=== PATIENT | male | born 1955 | race Caucasian/White ===

== ENCOUNTER 2020-12-21 15:44 | Observation (INO) | payer OTHER ==
[2020-12-21 16:21] VITALS: BMI 35.4
[2020-12-21] MEDS ORDERED: LIDOCAINE HCL 1%, 10 MG/ML (50 mL VIAL) SQ ONE (19:05)
[2020-12-21] MEDS ORDERED: LIDOCAINE HCL 1%, 10 MG/ML (20ML VIAL) ONE (19:05)
[2020-12-21 19:07] LABS: BASO % 0.2 % (0-2.0); EOS % 1.2 % (0-4.5); HEMOGLOBIN 14.8 GM/dL (11.7-16.9); LYMPH % 15.8 % (8-40); MCH 32.2 pg (25.7-33.7); MCHC 35.1 g/dl (32.0-35.9); MEAN CELL VOLUME 91.6 fl (80-96); MEAN PLT VOLUME 7.4 fl (7.5-11.1); NEUT % 72.8 % (42.8-82.8); PLATELET COUNT 199 10^3/uL (134-434); RBC 4.59 M/mm3 (4.00-5.60); WHITE BLOOD COUNT 7.6 K/mm3 (4.0-10.0)
[2020-12-21 19:29] LABS: CALCIUM 9.2 mg/dL (8.5-10.1)
[2020-12-21 19:30] LABS: ALBUMIN 3.8 g/dl (3.4-5.0); BLOOD UREA NITROGEN 15.6 mg/dL (7-18)
[2020-12-21] MEDS ORDERED: CLINDAMYCIN 600MG PREMIX IVPB 600 MG/50 ML BAG IVPB ONE ×2 (19:32→19:50)
[2020-12-21 19:33] LABS: CREATININE 1.2 mg/dL (0.55-1.3)
[2020-12-21 19:34] LABS: BILIRUBIN,TOTAL 0.9 mg/dL (0.2-1); TOT PROT 7.4 g/dl (6.4-8.2)
[2020-12-21] MEDS ORDERED: ENOXAPARIN NA (PORCINE) 40 MG/0.4 ML DISP.SYRIN SQ SCH (21:45)
[2020-12-21 22:49] LABS: EPI CELLS 10 /uL (0-25.1); HYALINE CASTS 2 /uL (0-3.1); URINE APPEARANCE CLEAR; URINE BACTERIA 12 /uL (0-1359); URINE BILIRUBIN NEGATIVE (NEGATIVE); URINE COLOR YELLOW; URINE GLUCOSE (UA) NEGATIVE (NEGATIVE); URINE KETONE NEGATIVE (NEGATIVE); URINE LEUK ESTERASE NEGATIVE (NEGATIVE); URINE NITRITE NEGATIVE (NEGATIVE); URINE PROTEIN 1+ (NEGATIVE); URINE RBC 10 /uL (0-23.9); URINE UROBILINOGEN 0.2 mg/dL (0.2-1.0); URINE WBC 5 /uL (0-25.8)
[2020-12-22] MEDS ORDERED: CLINDAMYCIN 600MG PREMIX IVPB 600 MG/50 ML BAG IVPB SCH ×2 (02:00→18:00)
[2020-12-22 09:03] LABS: BASO % 0.5 % (0-2.0); EOS % 1.8 % (0-4.5); HEMATOCRIT 41.6 % (35.4-49); HEMOGLOBIN 14.7 GM/dL (11.7-16.9); LYMPH % 23.3 % (8-40); MCH 32.8 pg (25.7-33.7); MCHC 35.4 g/dl (32.0-35.9); MEAN CELL VOLUME 92.6 fl (80-96); MEAN PLT VOLUME 7.8 fl (7.5-11.1); MONO % 11.8 % (3.8-10.2); NEUT % 62.6 % (42.8-82.8); PLATELET COUNT 214 10^3/uL (134-434); RBC 4.49 M/mm3 (4.00-5.60); RDW 13.2 % (11.9-15.9); WHITE BLOOD COUNT 5.8 K/mm3 (4.0-10.0)
[2020-12-22 09:06] LABS: CALCIUM 8.7 mg/dL (8.5-10.1)
[2020-12-22 09:07] LABS: BLOOD UREA NITROGEN 15.5 mg/dL (7-18); CHOLESTEROL 153 mg/dL (50-200); MAGNESIUM 2.2 mg/dL (1.8-2.4)
[2020-12-22 09:09] LABS: LDL CHOLESTEROL (ONLY SJRH) 87 mg/dL (5-100)
[2020-12-22 09:10] LABS: CREATININE 1.3 mg/dL (0.55-1.3); PHOSPHOROUS 3.3 mg/dL (2.5-4.9)
[2020-12-22 09:11] LABS: BILIRUBIN,TOTAL 1.2 mg/dL (0.2-1); HDL CHOLESTEROL 52 mg/dL (40-60); TOT PROT 7.2 g/dl (6.4-8.2); TRIGLYCERIDES 77 mg/dL (0-150)
[2020-12-22 09:16] VITALS: PULSE 55
[2020-12-22] MEDS ORDERED: CLINDAMYCIN 600MG PREMIX IVPB 600 MG/50 ML BAG IVPB ONE ×2 (09:27→09:30)
[2020-12-22 09:29] LABS: ALBUMIN 3.6 g/dl (3.4-5.0)
[2020-12-22 13:25] VITALS: BP 126/71; TEMP 97.9
== END 2020-12-22 14:40 | disposition home or self-care (01) ==
LOC: JER 15:44 → INTOOBSV 22:44 → UNDOADMOB 22:44 → JERBED 22:44
PROVIDERS: ADMIT Internal Medicine
PROC: 3E03329 Introduction of Other Anti-infective into Peripheral Vein, Percutaneous Approach (ICD-10-PCS; principal; 2020-12-22)
PROC: 3E023NZ Introduction of Analgesics, Hypnotics, Sedatives into Muscle, Percutaneous Approach (ICD-10-PCS; 2020-12-22)
DX: L03.011 Cellulitis of right finger (principal); E11.9 Type 2 diabetes mellitus without complications; E66.9 Obesity, unspecified; Z68.35 Body mass index [BMI] 35.0-35.9, adult; Z88.0 Allergy status to penicillin
CPT/HCPCS: 36415; 71045-TC-FY; 80053; 80061; 81003; 82962; 83036; 83735; 84100; 85025; 87040; 87086; 93005; 93010; 96365; 96366; 99285-25; C9803; G0378; U0003; U0005

== ENCOUNTER 2023-12-22 | Emergency (ER) | payer OTHER ==
[2023-12-22 00:09] VITALS: BP 158/99; PULSE 98; RESP 20; TEMP 99.1; BMI 31.4
[2023-12-22 00:46] LABS: VENOUS BASE EXCESS 1.2 mmol/L (-2-2); VENOUS O2 SATURATION 90.8 % (70-80); VENOUS PCO2 36.1 mmHg (38-52); VENOUS PH 7.454 (7.310-7.410)
[2023-12-22] MEDS: LACTATED RINGERS SOLUTION 1000 ML INFUS.BAG IV ONE (00:46)
[2023-12-22 00:50] LABS: BASO % 0.5 % (0-2.0); EOS % 2.2 % (0-4.5); HEMATOCRIT 37.2 % (35.4-49); MCH 31.4 pg (25.7-33.7); MCHC 35.1 g/dl (32.0-35.9); MEAN CELL VOLUME 89.5 fl (80-96); MEAN PLT VOLUME 7.5 fl (7.5-11.1); MONO % 8.6 % (3.8-10.2); NEUT % 67.7 % (42.8-82.8); PLATELET COUNT 280 10^3/uL (134-434); RBC 4.15 M/mm3 (4.00-5.60); RDW 12.9 % (11.9-15.9); WHITE BLOOD COUNT 6.6 K/mm3 (4.0-10.0)
[2023-12-22 01:10] LABS: CHLORIDE 100 mmol/L (98-107); POTASSIUM 4.1 mmol/L (3.5-5.1); SODIUM 135 mmol/L (136-145)
[2023-12-22 01:12] LABS: ALBUMIN 3.2 g/dl (3.4-5.0); CALCIUM 8.5 mg/dL (8.5-10.1)
[2023-12-22 01:14] LABS: ANION GAP 10 mmol/L (4-13); BLOOD UREA NITROGEN 19.6 mg/dL (7-18); CO2 24 mmol/L (21-32)
[2023-12-22 01:15] LABS: SGPT/ALT 24 U/L (13-61)
[2023-12-22 01:16] LABS: CREATININE 1.4 mg/dL (0.55-1.3); SGOT/AST 15 U/L (15-37)
[2023-12-22 01:17] LABS: BILIRUBIN,TOTAL 0.6 mg/dL (0.2-1); TOT PROT 6.3 g/dl (6.4-8.2)
[2023-12-22 01:18] LABS: ALK PHOS 108 U/L (45-117)
[2023-12-22 01:24] LABS: GLUCOSE,RANDOM 532 mg/dL (74-106)
[2023-12-22] MEDS ORDERED: INSULIN (NOVOLOG MIX 70/30) 100 UNITS/ML MDV SQ ONE (01:39)
[2023-12-22 01:40] LABS: PH,URINE 6.5 (5.0-8.0); URINE APPEARANCE CLEAR; URINE BILIRUBIN NEGATIVE (NEGATIVE); URINE COLOR YELLOW; URINE GLUCOSE (UA) 3+ (NEGATIVE); URINE KETONE 1+ (NEGATIVE); URINE LEUK ESTERASE NEGATIVE (NEGATIVE); URINE NITRITE NEGATIVE (NEGATIVE); URINE PROTEIN NEGATIVE (NEGATIVE); URINE UROBILINOGEN 0.2 mg/dL (0.2-1.0)
[2023-12-22] MEDS: INSULIN (NOVOLOG MIX 70/30) 100 UNITS/ML MDV SQ ONE (01:48)
[2023-12-22 02:05] LABS: HIV INTERPRETATION NEGATIVE (NEGATIVE)
[2023-12-22] MEDS ORDERED: INSULIN REGULAR HUMAN 100 UNITS/ML *VIAL ONE (02:37)
[2023-12-22] MEDS: INSULIN REGULAR HUMAN 100 UNITS/ML *VIAL IVPUSH ONE (02:40)
== END 2023-12-22 03:21 | disposition home or self-care (01) ==
LOC: JER
PROC: 3E033VG Introduction of Insulin into Peripheral Vein, Percutaneous Approach (ICD-10-PCS; principal; 2023-12-22)
PROC: 3E013GC Introduction of Other Therapeutic Substance into Subcutaneous Tissue, Percutaneous Approach (ICD-10-PCS; 2023-12-22)
DX: E11.65 Type 2 diabetes mellitus with hyperglycemia (principal)
CPT/HCPCS: 36415; 80053; 81003; 82010; 82803; 82962; 83605; 83690; 85025; 86803; 87086; 87389; 93005; 93010; 96372; 96374; 99284-25